=== PATIENT | female | born 1970 | race Caucasian/White ===

== ENCOUNTER → 2020-06-02 | Outpatient (CLI) | payer BC ==
--- NOTE | 2020-06-02 12:25 | US ---
EXAMINATION TYPE: US transvaginal DATE OF EXAM: 06/02/2020 COMPARISON: NONE CLINICAL HISTORY: N93.8 abnormal uterine and vaginal bleeding. DUB x 5-6 weeks with vaginal bleeding nearly every day; ; C section x 1. TECHNIQUE: Transvaginal (TV) [per physician's order.Transvaginal sonographic images were medically n ecessary to better assess the following anatomy: endometrium. Date of LMP: 05/28/2020 EXAM MEASUREMENTS: Uterus: 7.9 x 4.2 x 3.9 cm Endometrial Stripe: 0.5 cm Right Ovary: 2.2 x 3.0 x 1.2 cm Left Ovary: 3.3 x 2.7 x 1.4cm 1. Uterus: Anteverted, Nabothian Cysts seen with largest = 0.4 x 0.5 x 0.3cm 2. Endometrium: endometrial reid added together for measure as fluid layer = 1.1 x 0.5 x 0.3cm is no mike in upper endometrium 3. Right Ovary: couple of follicles seen with larger = 0.8 x 0.7 x 0.4cm 4. Left Ovary: follicle seen = 0.7 x 0.6 x 0.4cm 5. Bilateral Adnexa: wnl 6. Posterior cul-de-sac: wnl IMPRESSION: 1. Cervical nabothian cyst. 2. Small right ovarian follicle as well as small left ovarian follicle.
== END | disposition home or self-care (01) ==
LOC: RADUSWWP 10:17
PROVIDERS: ATTEND Family Medicine
DX: N88.8 Other specified noninflammatory disorders of cervix uteri (principal)
CPT/HCPCS: 76830

== ENCOUNTER → 2020-08-13 | Outpatient (CLI) | payer BC ==
--- NOTE | 2020-08-13 10:02 | MM ---
Reason for exam: screening (asymptomatic). Baseline mammogram. History: Took hormonal contraceptives for 15 years. Physical Findings: Nurse did not find any significant physical abnormalities on exam. MG Screening Mammo w CAD Bilateral CC and MLO view(s) were taken. The breast tissue is heterogeneously dense. This may lower the sensitivity of mammography. Finding: There are grouped/clustered, fine calcifications in the lower inner quadrant, middle position of the left breast 4cm from the nipple. These results were verbally communicated with the patient and result sheet given to the patient on 08/13/20. ASSESSMENT: Incomplete: need additional imaging evaluation, BI-RAD 0 RECOMMENDATION: Special view mammogram of the left breast.
--- NOTE | 2020-08-13 10:04 | MM ---
Reason for exam: additional evaluation requested from abnormal screening. History: Took hormonal contraceptives for 15 years. Physical Findings: Breast exam preformed at baseline screening. MG Work Up Mamm w CAD LT Spot compression CC, spot compression MLO, and LM view(s) were taken of the left breast. The breast tissue is heterogeneously dense. This may lower the sensitivity of mammography. Finding: There are intermediate concern, suspicious coarse heterogeneous, grouped/clustered calcifications in the lower inner quadrant, middle position of the left breast. These results were verbally communicated with the patient and result sheet given to the patient on 08/13/20. ASSESSMENT: Suspicious, BI-RAD 4 RECOMMENDATION: Stereotactic core biopsy of the left breast. Called Dr. Latham's office with mammographic findings and has scheduled an appointment for the patient for 09/17/20 at 10:[address] Ramirez. Biopsy scheduled for 09/07/20 at 10:00. PRELIMINARY REPORT CALLED AND FAXED TO DR. RAMIREZ ON 08/13/20.
== END | disposition home or self-care (01) ==
LOC: RADMAMWWP 08:03
PROVIDERS: ATTEND Family Medicine
DX: Z12.31 Encounter for screening mammogram for malignant neoplasm of breast (principal); R92.8 Other abnormal and inconclusive findings on diagnostic imaging of breast
CPT/HCPCS: 77065; 77067

== ENCOUNTER → 2020-09-07 | Day surgery (SDC) | payer BC ==
[2020-09-07 09:21] VITALS: RESP 16
[2020-09-07 10:56] VITALS: BP 118/74; PULSE 54; TEMP 98.4
--- NOTE | 2020-09-07 11:38 | MM ---
EXAMINATION TYPE: MG stereo VAD BX LT DATE OF EXAM: 09/07/2020 COMPARISON: 08/13/2020 CLINICAL HISTORY: 50-year-old female referred for stereotactic core needle biopsy of lower quadrant left breast microcalcifications. TECHNIQUE: Stereotactic guided core biopsy of the left breast. FINDINGS: The procedure of stereotactic guided core biopsy was explained to the patient. Benefits, alternatives, and risks were discussed. An informed consent was then obtained. A magnified lateral view was obtained of the calcifications. Some of these layer compatible with benign milk of calcium. Others within the same group do not clearly layer. We proceeded with biopsy. The shortness pathway for biopsy was chosen. Shortness pathway was a medial approach. I performed the localization followed by the remainder of the procedure. A vacuum assisted biopsy gun was used to obtain multiple core samples. The patient tolerated the procedure well without any immediate complication. The patient was kept in the radiology department for short stay after the procedure and then discharged home in stable condition. Targeted calcifications are identified in specimen mammogram. Post biopsy mammogram shows the clip to have migrated laterally by approximately 1 cm. IMPRESSION: SUCCESSFUL, UNCOMPLICATED STEREOTACTIC GUIDED CORE BIOPSY OF LOWER INNER QUADRANT LEFT BREAST MICROCALCIFICATIONS. SOME OF THESE CALCIFICATIONS LAYER COMPATIBLE WITH BENIGN MILK OF CALCIUM BUT OTHER CALCIFICATIONS WITHIN THE SAME GROUP DO NOT CLEARLY LAYER. NOTE 1 CM OF LATERAL CLIP MIGRATION. FULL PATHOLOGY RESULTS TO FOLLOW. Pathology Results: Benign LEFT BREAST, CORE NEEDLE BIOPSY: Columnar cell change/hyperplasia with microcalcification and focal fibrocystic change with apocrine metaplasia. Negative for in situ or invasive carcinoma. Recommendation Follow up ultrasound of the left breast in 6 months. ANASTASIIA
== END ==
LOC: RADMAMWWP 08:44
PROVIDERS: ATTEND Surgery
DX: N60.11 Diffuse cystic mastopathy of right breast (principal); N60.82 Other benign mammary dysplasias of left breast
CPT/HCPCS: 88305; 19081; A4648; J2001

== ENCOUNTER → 2021-02-11 | Outpatient (CLI) | payer BC ==
--- NOTE | 2021-02-12 09:11 | MM ---
Reason for exam: follow-up at short interval from prior study. Last mammogram was performed 6 months ago. History: Benign MG stereo VAD BX LT of the left breast, September 07, 2020. Took hormonal contraceptives for 15 years. Physical Findings: Nurse did not find any significant physical abnormalities on exam. MG Diagnostic Mammo LT w CAD CC and MLO view(s) were taken of the left breast. Prior study comparison: August 13, 2020, left breast MG work up mamm w CAD LT. August 13, 2020, bilateral MG screening mammo w CAD. There are scattered fibroglandular densities. Left biopsy clip. These results were verbally communicated with the patient and result sheet given to the patient on 02/11/21. ASSESSMENT: Benign, BI-RAD 2 RECOMMENDATION: Return to routine screening mammogram schedule for both breasts. Back on schedule for July 2020.
== END | disposition home or self-care (01) ==
LOC: RADMAMWWP 12:59
PROVIDERS: ATTEND Surgery
DX: R92.8 Other abnormal and inconclusive findings on diagnostic imaging of breast (principal)
CPT/HCPCS: 77065